=== PATIENT | female | born 1995 | race Caucasian/White ===

== ENCOUNTER 2023-04-16 05:50 | Outpatient (OUT) | payer OTHER, SELFPAY ==
--- NOTE | 2023-04-16 | XR_ITS ---
The [address] [address] Patient Name: MIRIAN BASILIO MRN: [id number] date: 1995 Sex: F Assigned Patient Location: [facility] Current Patient Location: [facility] Accession/Order Number: [id number] Exam Date: 04/16/2023 06:00 Report Date: 04/16/2023 06:47 At the request of: NON-STAFF PHYSICIAN Procedure: XR hand RT min 3V EXAM: XR hand RT min 3V HISTORY: right hand pain COMPARISON: None. TECHNIQUE: 3 views of the right hand were obtained. FINDINGS: No acute fracture or dislocation is seen. The joint spaces are preserved. XR/XR hand RT min 3V IMPRESSION: 1. No acute fracture or dislocation of the right hand is seen. If pain persists, repeat radiographs are recommended in 7-10 days. Electronically authenticated by: Rehana MULLINS Date: 04/16/2023 06:47
== END 2023-04-16 05:51 | disposition home or self-care (01) ==
LOC: RAD 05:55
DX: M79.641 Pain in right hand (principal)
CPT/HCPCS: 73130

== ENCOUNTER 2024-07-16 06:52 | Emergency (ER) | payer SELFPAY ==
[2024-07-16 06:55] VITALS: BP 140/90; PULSE 101; TEMP 37.8; O2SAT 99; BMI 110.3
[2024-07-16 07:00] VITALS: O2SAT 98
[2024-07-16 07:24] LABS: Influenza Virus A Antigen Negative; Influenza Virus B Antigen Negative; Internal Control Within Normal Limits; SARS-CoV-2 Ag NEGATIVE (NEGATIVE); Strep A Antigen Screen Negative
--- NOTE | 2024-07-16 07:42 | ED_ITS ---
HPI - URI/Sore Throat General Chief Complaint: Upper Respiratory Infection Stated Complaint: SORE THROAT, CHILLS Time Seen by Provider: 07/16/24 07:15 Source: patient Limitations: no limitations History of Present Illness HPI Narrative: The patient presented to us with a runny nose as well as sore throat with the nasal congestion the patient is feeling her both ears are full with fluid The patient denies any difficulty breathing any cough nausea vomiting or diarrhea He does have some generalized body ache Related Data Home Medications ?Medication ?Instructions ?Recorded ?Confirmed No Known Home Medications 07/16/24 07/16/24 Allergies Allergy/AdvReac Type Severity Reaction Status Date / Time cephalexin (From Keflex) Allergy Severe Hives Verified 07/16/24 07:01 Penicillins Allergy Severe Hives Verified 07/16/24 07:01 sulfamethoxazole (From Allergy Severe Hives Verified 07/16/24 07:01 Bactrim) trimethoprim (From Bactrim) Allergy Severe Hives Verified 07/16/24 07:01 Review of Systems ROS Status of ROS 10 or more systems reviewed and unremark able except as noted in history and below [facility] Medical History (Updated 07/16/24 @ 07:55 by Dc Zamora) No pertinent past medical history ?Z78.9 - Other specified health status (ICD-10) Surgical History (Updated 07/16/24 @ 07:55 by Dc Zamora) No pertinent past surgical history ?Z78.9 - Other specified health status (ICD-10) Social History Little interest or pleasure in doing things: not at all Feeling down, depressed, or hopeless: not at all Exam Narrative Exam Narrative: Nurses notes and vital signs reviewed and patient is not hypoxic. General: Well-appearing and in no apparent distress. Skin: Warm, dry, no pallor noted. No rash. Head: Normocephalic, atraumatic. Neck: Supple, non-tender. Eye: Pupils are equal, round and EOMI. No scleral icterus. Ears, Nose, Mouth, and Throat: TM are clear, bilateral nasal congestion as well as erythema noted in the pharynx but the patient have no enlargement of the tonsils or any exudates ,uvula is mid-line Cardiovascular: Regular Rate and Rhythm without murmur, gallop or rub. Respiratory: No accessory muscle use or respiratory distress. Lungs are clear to auscultation, no wheezing, rales or rhonchi Chest Wall: no tenderness Back: No midline thoracic or lumbar vertebral tenderness. No CVA tenderness Musculoskeletal: normal ROM, no calf or popliteal tenderness, no lower extremity edema/swelling GI: Abdomen is soft, non-distended. Normal bowel sounds. No masses appreciated. No tenderness to palpation. No rebound, guarding, or rigidity noted. Neurological: A&O x4. No cranial nerve dysfunction observed. No truncal ataxia. Moves all extremities. Sensation intact. Psychiatric: Cooperative and interactive. Normal mood and affect. Constitutional Vital Signs, click to edit/add: Last Vital Signs Temp 100.1 F 07/16/24 06:55 Pulse 101 H 07/16/24 06:55 Resp 20 07/16/24 06:55 BP 140/90 07/16/24 06:55 Pulse Ox 98 07/16/24 07:00 O2 Del Method Room Air 07/16/24 07:00 Course Vital Signs Vital signs: Vital Signs Temperature 100.1 F 07/16/24 06:55 Pulse Rate 101 H 07/16/24 06:55 Respiratory Rate 20 07/16/24 06:55 Blood Pressure 140/90 07/16/24 06:55 Pulse Oximetry 99 07/16/24 06:55 Oxygen Delivery Method Room Air 07/16/24 06:55 Temperature 100.1 F 07/16/24 06:55 Pulse Rate 101 H 07/16/24 06:55 Respiratory Rate 20 07/16/24 06:55 Blood Pressure 140/90 07/16/24 06:55 Pulse Oximetry 98 07/16/24 07:00 Oxygen Delivery Method Room Air 07/16/24 07:00 MDM - URI/Sore Throat MDM Narrative Medical decision making narrative: The patient presenting to us with a upper spider tract symptoms Strep as well as COVID and flu test are negative but the patient will just continue supportive care at home The patient is to follow up with primary care physician in next 2-3 days or to return to the emergency department should any of the signs or symptoms worsen or new symptoms develop. The patient agrees with the following Diagnosis and Treatment plan and the patient will be discharged home. Lab Data Labs: Lab Results 07/16/24 Range/Units 07:00 Influenza Type A Ag Negative Influenza Type B Ag Negative SARS-CoV-2 Ag (CV2AG) Negative (NEGATIVE) Streptococcus Screen Negative Discharge Plan Discharge Chief Complaint: Upper Respiratory Infection Clinical Impression: Upper respiratory infection Patient Disposition: Home, Self-Care Time of Disposition Decision: 07:42 Condition: Good Prescriptions / Home Meds: No Action No Known Home Medications Print Language: Mauritanian Instructions: Pharyngitis (ED), Upper Respiratory Infection (DC) Referrals: Physician,Non-Staff, MD [Primary Care Provider] - 1 week Discharge Date/Time: 07/16/24 07:56
== END 2024-07-16 07:56 | disposition home or self-care (01) ==
PROVIDERS: Emergency Provider Emergency Medicine
DX: J06.9 Acute upper respiratory infection, unspecified (principal); R50.9 Fever, unspecified
CPT/HCPCS: 87070; 87804; 87811; 87880; 99285

== ENCOUNTER 2024-11-25 07:10 | Emergency (ER) | payer OTHER, SELFPAY ==
[2024-11-25 07:14] VITALS: BP 128/98; PULSE 94; TEMP 36.9; O2SAT 99; BMI 46.8
--- OUTSIDE RECORDS SUMMARY | 2024-11-25 07:18 | XMS_ITS | CCD ---
Author Organization [facility] Care Team Providers Care Senior Embedded Software Engineer Name Role Phone JUVEC, DR BELLA Primary Care Unavailable JAY ., JOSE Attending Unavailable JAY ., JOSE Admitting Unavailable JULI BREWER Consulting Unavailable MISC, DR BELLA Admitting Unavailable MISC, DR BELLA Attending Unavailable MISC, DR BELLA Consulting Unavailable MISC, DR BELLA Primary Care Unavailable SANDRA WHITING Consulting Unavailable MISC, DR BELLA Primary Care Unavailable JAY ., JOSE Attending Unavailable JAY ., JOSE Admitting Unavailable DAQUAN .CB Consulting Unavailable Allergies Allergy Classification Reported Allergen(s) Allergy Type Date of Onset Reaction(s) Facility (1 source) Cephalexin Drug Allergy 1 [facility] Repository (1 source) Penicillin Drug Allergy 1 [facility] Repository (1 source) Sulfamethoxazole / Trimethoprim Drug Allergy 1 [facility] Repository Problems Active Problems Problem Classification Problem Date Documented Da te Episodic/Chronic Inflammation; infection of eye (except that caused by tuberculosis or sexually transmitteddisease) (1 source) Unspecified conjunctivitis; Translations: [UNSPECIFIED CONJUNCTIVITIS] Onset: 10-29-2022 Episodic Other eye disorders (3 sources) Other specified disorders of eye and adnexa; Translations: [OTHER SPEC DISORDERS EYE AND ADNEXA] Onset: 10-28-2022 Episodic Past or Other Problems Problem Classification Problem Date Documented Da te Episodic/Chronic Other non-traumatic joint disorders (4 sources) Pain in right shoulder; Translations: [PAIN IN RIGHT SHOULDER] Onset: 06-13-2022 Episodic Results Test Name Value Interpretation Reference Range Facil ity XR SHOULDER RT 2V or >on XR SHOULDER RT 2V or > EXAM: XR SHOULDER RT 2V or > HISTORY: Pain of right shoulder joint COMPARISON: None. TECHNIQUE: 3 views of the shoulder. FINDINGS: No evidence of fracture or significant malalignment. No significant degenerative changes. Unremarkable soft tissues. No radiopaque foreign body is seen. IMPRESSION: No evidence of acute fracture or dislocation. Electronically authenticated by: SANDRA WHITING Date: 2022-06-13 05:17 Normal [facility] Encounters Encounter Date Encounter Type Care Provider Facility Start: 10-28-2022 End: 10-28-[address] BELLA MISAgustin Facility:[facility] Start: 10-27-2022 End: 10-27-[address] BELLA MISAgustin Facility:[facility] Start: 06-13-2022 End: 06-14-[address] BELLA MISC Facility:[facility] Payers Date Payer Category Payer Unknown [id number] 1995 Unknown [id number] 1995 Unknown [id number] 1959 Unknown [id number] 1959 Unknown [id number] Summary Purpose Family History No Family History Records Found Advance Directives No Advanced Directives Records Found Additional Source Comments INFORMATION SOURCE (unrecogn ized section and content) DATE CREATED AUTHOR 10/29/2022 [facility] FOR RECORDS PERTAINING TO PATIENTS WHO ARE OR HAVE BEEN ENROLLED IN A CHEMICAL DEPENDENCY/SUBSTANCEABUSE PROGRAM, SOME INFORMATION MAY BE OMITTED. This clinical summary was aggregated from multiple sources. Caution should be exercised in using it in the provision of clinical care. This summary normalizes information from multiple sources, and as a consequence, information in this document may materially change the coding, format and clinical context of patient data. In addition, data may be omitted in some cases. CLINICAL DECISIONS SHOULD BE BASED ON THE PRIMARY CLINICAL RECORDS. [facility]. provides no warranty or guarantee of the accuracy or completeness of information in this document.
--- NOTE | 2024-11-25 07:28 | ED_ITS ---
HPI HPI - General Adult General Chief complaint: Extremity Injury, Lower Stated complaint: FALL R KNEE PAIN Time Seen by Provider: 11/25/24 07:16 Source: patient Mode of arrival: Wheelchair History of Present Illness HPI narrative: 29-year-old female presents for right knee pain. She jumped off a trampoline 2 days ago and hurt her knee. No pain in the ankle or hip. The entire knee hurts. Hurts more to bend it or walk on it. Related Data Previous Rx's ?Medication ?Instructions ?Recorded ibuprofen 800 mg tablet 800 mg PO Q8H PRN pain #20 t abs 11/25/24 Allergies Allergy/AdvReac Type Severity Reaction Status Date / Time cephalexin (From Keflex) Allergy Severe Hives Verified 11/25/24 07:14 Penicillins Allergy Severe Hives Verified 11/25/24 07:14 sulfamethoxazole (From Allergy Severe Hives Verified 11/25/24 07:14 Bactrim) trimethoprim (From Bactrim) Allergy Severe Hives Verified 11/25/24 07:14 Opioid HPI Opioid Management Most Recent Opioid Data: Last Pain Scale 8 Today, 07:21 Review of Systems ROS Narrative A ten point review of systems is negative except as noted above. [facility] Medical History (Updated 11/25/24 @ 08:46 by Michael Werner MD) No pertinent past medical history ?Z78.9 - Other specified health status (ICD-10) Surgical History (Updated 07/16/24 @ 07:55 by Dc Zamora) No pertinent past surgical history ?Z78.9 - Other specified health status (ICD-10) Social History Little interest or pleasure in doing things: not at all Feeling down, depressed, or hopeless: not at all Exam Narrative Exam Narrative: Nurses note and vital signs reviewed and patient is not hypoxic. General: The patient appears well and in no apparent distress. Patient is resting comfortably on cart. Skin: Warm, dry, no pallor noted. There is no rash noted. Head: Normocephalic, atraumatic Eye: Normal conjunctiva, no drainage Ears, Nose, Mouth, and Throat: oral mucosa is moist. Nares patent. Cardiovascular: Regular Rate and Rhythm Respiratory: Patient is in no distress, no accessory muscle use, lungs are clear to auscultation, no wheezing, rales or rhonchi Back: non-tender GI: Soft and nontender Musculoskeletal: The right knee is examined. There is no bruise rash or obvious deformity. There is no erythema. She has good range of motion though this causes discomfort. The knee joint is stable. Neurological: A&O, normal speech Psychiatric: Cooperative Constitutional Vital Signs, click to edit/add: Last Vital Signs Temp 98.5 F 11/25/24 07:14 Pulse 94 H 11/25/24 07:14 Resp 16 11/25/24 07:14 BP 128/98 H 11/25/24 07:14 Pulse Ox 99 11/25/24 07:14 O2 Del Method Room Air 11/25/24 07:14 Course Vital Signs Vital signs: Vital Signs Temperature 98.5 F 11/25/24 07:14 Pulse Rate 94 H 11/25/24 07:14 Respiratory Rate 16 11/25/24 07:14 Blood Pressure 128/98 H 11/25/24 07:14 Pulse Oximetry 99 11/25/24 07:14 Oxygen Delivery Method Room Air 11/25/24 07:14 Temperature 98.5 F 11/25/24 07:14 Pulse Rate 94 H 11/25/24 07:14 Respiratory Rate 16 11/25/24 07:14 Blood Pressure 128/98 H 11/25/24 07:14 Pulse Oximetry 99 11/25/24 07:14 Oxygen Delivery Method Room Air 11/25/24 07:14 Medical Decision Making MDM Narrative Medical decision making narrative: X-ray per radiologist shows no acute findings. Giancarlo wrap applied, application checked by me and found to be appropriate, she is neurovascularly intact. She was prescribed ibuprofen. Treatment diagnosis and follow-up were discussed with the patient. Differential Diagnosis Differential Diagnosis: Knee sprain, effusion, fracture Imaging Data Right knee x-ray: Radiologist's impression: No acute bony process Discharge Plan Discharge Chief Complaint: Extremity Injury, Lower Clinical Impression: Right knee sprain Patient Disposition: Home, Self-Care Time of Disposition Decision: 08:46 Condition: Good Mode of Transportation: Private Vehicle Prescriptions / Home Meds: New ibuprofen 800 mg tablet 800 mg PO Q8H PRN (Reason: pain) Qty: 20 0RF Print Language: Bahamian Instructions: Knee Sprain (ED), How to Use an Elastic Bandage (ED) Referrals: Physician,Non-Staff, MD [Primary Care Provider] - 1 week
--- NOTE | 2024-11-25 09:10 | PC.NURSE ---
shanique wrap applied to right knee, pt tolerated well. PMS intact pre and post shanique application
== END 2024-11-25 09:10 | disposition home or self-care (01) ==
PROVIDERS: Emergency Provider Emergency Medicine
DX: S83.91XA Sprain of unspecified site of right knee, initial encounter (principal); Y93.44 Activity, trampolining
CPT/HCPCS: 73562; 99283